=== PATIENT | female | born 1965 | race Caucasian/White ===

== ENCOUNTER 2016-12-02 06:51 | Day surgery (SDC) | payer MEDICAID ==
[~2016-12-02] VITALS: Ht 160 cm; Wt 67.6 kg
[2016-12-02] MEDS ORDERED: fentaNYL CITRATE/PF 100 MCG/2 ML AMP ONE ×2 (07:30)
[2016-12-02] MEDS ORDERED: MIDAZOLAM HCL 5 MG/5 ML VIAL ONE ×2 (07:31)
[2016-12-02] MEDS ORDERED: MEPERIDINE HCL/PF 100 MG/ML AMP ONE (07:50)
[2016-12-02] MEDS ORDERED: MEPERIDINE HCL/PF 100 MG/ML AMP IV ONE ×3 (08:26→08:45)
[2016-12-02] MEDS ORDERED: MIDAZOLAM HCL 5 MG/5 ML VIAL IVP ONE ×4 (08:28→08:34)
[2016-12-02 17:15] VITALS: BP_SYST 132
== END 2016-12-02 17:15 | disposition home or self-care (01) ==
LOC: SDS 06:51 → SMU 07:39 → SDS 17:15
PROVIDERS: ATTEND Internal Medicine Gastroenterology
DX: D50.9 Iron deficiency anemia, unspecified (principal); K57.30 Diverticulosis of large intestine without perforation or abscess without bleeding; K64.8 Other hemorrhoids; I10 Essential (primary) hypertension; E78.5 Hyperlipidemia, unspecified; Z98.890 Other specified postprocedural states; J45.909 Unspecified asthma, uncomplicated; Z87.891 Personal history of nicotine dependence; M19.90 Unspecified osteoarthritis, unspecified site; E11.9 Type 2 diabetes mellitus without complications; K21.9 Gastro-esophageal reflux disease without esophagitis
CPT/HCPCS: 45378; J2175; J2250; J3010

== ENCOUNTER 2018-02-08 14:49 | Emergency (ER) | payer MEDICAID ==
[~2018-02-08] VITALS: Ht 160 cm; Wt 70.3 kg
[2018-02-08 15:00] VITALS: BP_SYST 131
--- NOTE | 2018-02-08 15:09 | NUR ---
Placed in room 07 . Placed on hall monitor, blood pressure machine and pulse oximeter. To gown for exam. Side rails up. Report given to Garfield HERNANDEZ
--- NOTE | 2018-02-08 15:15 | NUR ---
Patient to ER via triage for evaluation of left foot pain and SOB, x 1 day. Patient is awake, alert and oriented in no acute distress, vital signs stable, respirations even and unlabored, skin warm and dry to touch. Patient able to ambulate to bed 7 with slow, steady gait. Awaiting evaluation by ER MD, will continue to observe and assess.
--- NOTE | 2018-02-08 15:45 | NUR ---
Patient to radiolgy via wheelchair in stable condition, awaiting results and dispo.
--- NOTE | 2018-02-08 16:15 | NUR ---
Patient returned from radiology in stable condition.
--- NOTE | 2018-02-08 16:30 | NUR ---
Lab at bedside to obtain specimens.
[2018-02-08 16:38] LABS: BASOPHILS # (AUTO) 0.1 K/uL (0.0-0.2); BASOPHILS % (AUTO) 0.7 % (0.0-2.0); EOSINOPHILS # (AUTO) 0.1 K/uL (0.0-0.4); EOSINOPHILS % (AUTO) 1.5 % (0.0-4.0); HEMATOCRIT 34.8 % (36-48); LYMPHOCYTES # (AUTO) 2.6 K/uL (1.0-5.5); LYMPHOCYTES % (AUTO) 31.7 % (20.5-51.5); MEAN CORPUSCULAR HEMOGLOBIN 26 pg (27-31); MEAN CORPUSCULAR HGB CONC 32 % (32-36); MEAN CORPUSCULAR VOLUME 82 fL (79.0-98.0); MONOCYTES # (AUTO) 0.7 K/uL (0.0-1.0); MONOCYTES % (AUTO) 8.6 % (1.7-9.3); NEUTROPHILS # (AUTO) 4.7 K/uL (1.8-7.7); NEUTROPHILS % (AUTO) 57.5 % (40.0-70.0); PLATELET COUNT (AUTO) 589 K/uL (130-430); RED BLOOD CELL COUNT(AUTO) 4.23 MIL/uL (4.2-6.2); WHITE BLOOD COUNT (AUTO) 8.2 K/uL (4.8-10.8)
[2018-02-08 16:56] LABS: C-REACTIVE PROTEIN QUANT 0.8 mg/dL (0-0.5); CALCIUM 9.2 mg/dL (8.4-11.0); CREATININE 0.84 mg/dL (0.55-1.30); POTASSIUM 3.9 mmol/L (3.5-5.1)
--- NOTE | 2018-02-08 17:30 | NUR ---
Patient resting quietly in no acute distress, awaiting lab results and dispo.
[2018-02-08 17:42] LABS: ERYTHROCYTE SEDIMENTATION RATE 20 MM/HR (0-20)
[2018-02-08 18:28] VITALS: BP_SYST 124
--- NOTE | 2018-02-08 18:30 | NUR ---
Patient given written and verbal discharge instructions and verbalizes understanding. ER MD discussed with patient the results and treatment provided. Patient in stable condition. ID arm band removed. IV catheter removed intact and dressing applied, no active bleeding. Rx of tramadol, keflex,Bactrim given. Patient educated on pain management and to follow up with PMD. Pain Scale 2/10 tolerable for patient . Opportunity for questions provided and answered. Medication side effect fact sheet provided.
== END 2018-02-08 18:28 | disposition home or self-care (01) ==
LOC: SED 14:49
DX: L03.116 Cellulitis of left lower limb (principal); E11.40 Type 2 diabetes mellitus with diabetic neuropathy, unspecified; I10 Essential (primary) hypertension; F17.200 Nicotine dependence, unspecified, uncomplicated
CPT/HCPCS: 36415; 71046-TC; 80048; 81025; 85025; 85651-TC; 86140; 93971; 99285

== ENCOUNTER 2018-07-03 21:02 | Inpatient (IN) | payer MEDICAID ==
[~2018-07-03] VITALS: Ht 160 cm; Wt 73.5 kg
[2018-07-03 21:06] VITALS: BP_SYST 133
[2018-07-04 01:46] LABS: MEAN CORPUSCULAR HEMOGLOBIN 16 pg (27-31); MEAN CORPUSCULAR HGB CONC 28 % (32-36); MEAN CORPUSCULAR VOLUME 58 fL (79.0-98.0); RED BLOOD CELL COUNT(AUTO) 3.45 MIL/uL (4.2-6.2); WHITE BLOOD COUNT (AUTO) 13.6 K/uL (4.8-10.8)
[2018-07-04 01:47] LABS: BASOPHILS # (AUTO) 0.1 K/uL (0.0-0.2); BASOPHILS % (AUTO) 0.8 % (0.0-2.0); EOSINOPHILS # (AUTO) 0.1 K/uL (0.0-0.4); LYMPHOCYTES # (AUTO) 3.3 K/uL (1.0-5.5); LYMPHOCYTES % (AUTO) 24.3 % (20.5-51.5); MONOCYTES % (AUTO) 7.7 % (1.7-9.3); NEUTROPHILS % (AUTO) 66.2 % (40.0-70.0); PLATELET COUNT (AUTO) 576 K/uL (130-430); RED CELL DISTRIBUTION WIDTH 19.4 % (9.0-15.0)
[2018-07-04 01:48] LABS: POTASSIUM 3.7 mmol/L (3.5-5.1)
[2018-07-04 01:49] LABS: HEMOGLOBIN 5.7 g/dL (12.0-16.0)
[2018-07-04 02:12] LABS: INR 6.3 (0.8-1.2); PROTHROMBIN TIME 59.3 SECS (9.5-12.5)
[2018-07-04] MEDS ORDERED: MIRT30TA7 PO (04:10)
[2018-07-04] MEDS ORDERED: GABA-531 PO (04:10)
[2018-07-04] MEDS ORDERED: CYCL-10 PO (04:10)
[2018-07-04] MEDS ORDERED: PRO40 PO (04:10)
[2018-07-04] MEDS ORDERED: IMI50 PO (04:10)
[2018-07-04] MEDS ORDERED: HYDR-4274 PO (04:10)
[2018-07-04] MEDS ORDERED: LISI-209 PO (04:10)
[2018-07-04] MEDS ORDERED: DOCU-144 PO (04:10)
[2018-07-04] MEDS ORDERED: MECL12.584 PO (04:10)
[2018-07-04] MEDS ORDERED: LOSA25TA3 PO (04:10)
[2018-07-04] MEDS ORDERED: ALBMDI INH (04:10)
[2018-07-04] MEDS ORDERED: LIP40 PO (04:10)
[2018-07-04] MEDS ORDERED: ONDA4TAB5 PO (04:10)
[2018-07-04] MEDS ORDERED: ESCI20TA PO (04:10)
[2018-07-04 04:40] VITALS: BP_SYST 130
[2018-07-04] MEDS: HYDROcodone/ACETAMIN 10-325 MG TAB PO PRN ×3 (06:23→19:34)
[2018-07-04 08:00] VITALS: BP_SYST 112
[2018-07-04] MEDS ORDERED: MAGNESIUM SULFATE 50 ML IV PRN (10:30)
[2018-07-04] MEDS ORDERED: DOCUSATE SODIUM 100 MG CAPSULE PO PRN (10:30)
[2018-07-04] MEDS ORDERED: MUPIROCIN 2% TOPICAL OINTMENT 22 GM NS PRN (10:30)
[2018-07-04] MEDS ORDERED: LORazepam 2 MG/ML VIAL IVP PRN (10:30)
[2018-07-04] MEDS ORDERED: ZOLPIDEM TARTRATE 5 MG TABLET PO PRN (10:30)
[2018-07-04] MEDS ORDERED: MORPHINE 4 MG/ML INJ. SYRINGE IVP PRN ×2 (10:30)
[2018-07-04] MEDS ORDERED: ONDANSETRON HCL 4 MG/2 ML VIAL IVP PRN (10:30)
[2018-07-04] MEDS ORDERED: IPRATROPIUM/ALBUTEROL SULFATE 3 ML AMPUL.NEB (DUONEB) INH PRN (10:30)
[2018-07-04] MEDS ORDERED: ACETAMINOPHEN 325 MG TABLET PO PRN (10:30)
[2018-07-04 11:11] LABS: CALCIUM 9.3 mg/dL (8.4-11.0); CREATININE 0.91 mg/dL (0.55-1.30); POTASSIUM 3.8 mmol/L (3.5-5.1)
[2018-07-04 11:23] LABS: TOTAL IRON BIND. CAPACITY 404 ug/dL (250-450)
[2018-07-04 11:28] LABS: PROTHROMBIN TIME 71.9 SECS (9.5-12.5)
[2018-07-04 11:29] LABS: INR 7.7 (0.8-1.2)
[2018-07-04 11:53] LABS: RED BLOOD CELL COUNT(AUTO) 3.62 MIL/uL (4.2-6.2); WHITE BLOOD COUNT (AUTO) 10.3 K/uL (4.8-10.8)
[2018-07-04 11:54] LABS: BASOPHILS # (AUTO) 0.1 K/uL (0.0-0.2); EOSINOPHILS # (AUTO) 0.3 K/uL (0.0-0.4); EOSINOPHILS % (AUTO) 2.9 % (0.0-4.0); LYMPHOCYTES # (AUTO) 2.5 K/uL (1.0-5.5); LYMPHOCYTES % (AUTO) 24.2 % (20.5-51.5); MEAN CORPUSCULAR HEMOGLOBIN 19 pg (27-31); MEAN CORPUSCULAR HGB CONC 31 % (32-36); MEAN CORPUSCULAR VOLUME 62 fL (79.0-98.0); MONOCYTES # (AUTO) 1.1 K/uL (0.0-1.0); MONOCYTES % (AUTO) 10.3 % (1.7-9.3); NEUTROPHILS # (AUTO) 6.4 K/uL (1.8-7.7); NEUTROPHILS % (AUTO) 61.6 % (40.0-70.0); PLATELET COUNT (AUTO) 514 K/uL (130-430)
[2018-07-04 11:57] LABS: HEMATOCRIT 22.5 % (36-48)
[2018-07-04 12:41] VITALS: BP_SYST 98
[2018-07-04] MEDS ORDERED: PHYTONADIONE 5 MG TABLET PO ONE (12:45)
[2018-07-04] MEDS ORDERED: PHYTONADIONE 10 MG/ML AMP PO ONE (13:45)
[2018-07-04 13:50] LABS: RED CELL DISTRIBUTION WIDTH 25.6 % (9.0-15.0)
[2018-07-04] MEDS: GABAPENTIN 300 MG CAPSULE PO SCH ×2 (15:20→20:19)
[2018-07-04 16:36] VITALS: BP_SYST 92
[2018-07-04 17:51] LABS: BILIRUBIN,URINE NEGATIVE (NEGATIVE); BLOOD, URINE NEGATIVE (NEGATIVE); CLARITY/URINE CLEAR (CLEAR); COLOR,URINE YELLOW (YELLOW); GLUCOSE,URINE NEGATIVE (NEGATIVE); KETONES,URINE NEGATIVE (NEGATIVE); LEUKOCYTE ESTERASE ,URINE NEGATIVE (NEGATIVE); NITRITE, URINE NEGATIVE (NEGATIVE); PH,URINE 5.5 (5.0-8.0); PROTEIN URINE NEGATIVE (NEGATIVE); UROBILINOGEN,URINE 0.2 (0.2-1.0)
[2018-07-04 18:05] LABS: BENZODIAZEPINE, URINE NEGATIVE (NEG <=150); CANNABINOID, URINE NEGATIVE (NEG <=50); COCAINE, URINE NEGATIVE (NEG <=150); METHAMPHETAMINES SCREEN,URINE NEGATIVE (NEG <=500); OPIATE, URINE POSITIVE (NEG <=100); PHENCYCLIDINE SCREEN,URINE NEGATIVE (NEG <=25); URINE AMPHETAMINE NEGATIVE (NEG <=500); URINE METHADONE NEGATIVE (NEG <=200); URINE OXYCODONE SCREEN NEGATIVE (NEG <=100); URINE PROPOXYPHENE SCREEN NEGATIVE (NEG <=300)
[2018-07-04 18:06] LABS: UR TRICYCLIC ANTIDEPRESSANTS POSITIVE (NEG <=300)
[2018-07-04 18:07] LABS: BARBITURATE, URINE NEGATIVE (NEG <=200)
[2018-07-04 20:00] VITALS: BP_SYST 122
[2018-07-04] MEDS: FERROUS SULFATE 325 MG TABLET.DR PO SCH (20:19)
[2018-07-04] MEDS: DOCUSATE SODIUM 100 MG CAPSULE PO SCH (20:19)
[2018-07-04] MEDS: MIRTAZAPINE 15 MG TABLET PO SCH (20:19)
[2018-07-04] MEDS: CYCLOBENZAPRINE HCL 10 MG TABLET (FLEXERIL) PO SCH (20:19)
[2018-07-05] VITALS: BP_SYST 126
[2018-07-05 00:41] VITALS: BP_SYST 135
[2018-07-05] MEDS: HYDROcodone/ACETAMIN 10-325 MG TAB PO PRN ×4 (06:23→20:47)
[2018-07-05 07:57] VITALS: BP_SYST 123
[2018-07-05 08:00] LABS: INR 1.2 (0.8-1.2)
[2018-07-05 08:07] LABS: CALCIUM 8.9 mg/dL (8.4-11.0); CREATININE 0.84 mg/dL (0.55-1.30); POTASSIUM 3.9 mmol/L (3.5-5.1)
[2018-07-05 08:12] LABS: PROTHROMBIN TIME 12.7 SECS (9.5-12.5)
[2018-07-05] MEDS: GABAPENTIN 300 MG CAPSULE PO SCH ×3 (08:29→20:45)
[2018-07-05] MEDS: CYCLOBENZAPRINE HCL 10 MG TABLET (FLEXERIL) PO SCH ×2 (08:29→20:45)
[2018-07-05] MEDS: DOCUSATE SODIUM 100 MG CAPSULE PO SCH ×2 (08:30→20:46)
[2018-07-05] MEDS: CITALOPRAM HYDROBROMIDE 20 MG TABLET PO SCH (08:30)
[2018-07-05] MEDS: LOSARTAN POTASSIUM 25 MG TABLET PO SCH (08:30)
[2018-07-05] MEDS: FERROUS SULFATE 325 MG TABLET.DR PO SCH ×2 (08:31→20:45)
[2018-07-05] MEDS: ATORVASTATIN 20 MG TABLET PO SCH (08:31)
[2018-07-05] MEDS: PANTOPRAZOLE SODIUM 40 MG TAB PO SCH (08:31)
[2018-07-05 08:49] LABS: RED BLOOD CELL COUNT(AUTO) 3.91 MIL/uL (4.2-6.2); WHITE BLOOD COUNT (AUTO) 9.5 K/uL (4.8-10.8)
[2018-07-05 08:50] LABS: BASOPHILS # (AUTO) 0.1 K/uL (0.0-0.2); BASOPHILS % (AUTO) 0.9 % (0.0-2.0); EOSINOPHILS # (AUTO) 0.3 K/uL (0.0-0.4); EOSINOPHILS % (AUTO) 3.2 % (0.0-4.0); HEMATOCRIT 24.8 % (36-48); HEMOGLOBIN 7.3 g/dL (12.0-16.0); LYMPHOCYTES # (AUTO) 2.7 K/uL (1.0-5.5); LYMPHOCYTES % (AUTO) 28.1 % (20.5-51.5); MEAN CORPUSCULAR HEMOGLOBIN 19 pg (27-31); MEAN CORPUSCULAR HGB CONC 30 % (32-36); MEAN CORPUSCULAR VOLUME 64 fL (79.0-98.0); MONOCYTES # (AUTO) 1.1 K/uL (0.0-1.0); MONOCYTES % (AUTO) 11.8 % (1.7-9.3); NEUTROPHILS # (AUTO) 5.3 K/uL (1.8-7.7); PLATELET COUNT (AUTO) 542 K/uL (130-430); RED CELL DISTRIBUTION WIDTH 25.2 % (9.0-15.0)
[2018-07-05] MEDS ORDERED: GOLYTELY / COLYTE SOLUTION 4 LITERS PO ONE (09:30)
[2018-07-05 12:00] VITALS: BP_SYST 133
[2018-07-05 12:09] LABS: FOLATE (FOLIC ACID) 7.7 ng/mL (>3.0)
[2018-07-05 16:00] VITALS: BP_SYST 130
[2018-07-05] MEDS ORDERED: BISACODYL 5 MG TABLET.DR (DULCOLAX) PO ONE (18:30)
[2018-07-05 20:00] VITALS: BP_SYST 147
[2018-07-05] MEDS: MIRTAZAPINE 15 MG TABLET PO SCH (20:45)
[2018-07-06 00:15] VITALS: BP_SYST 136
[2018-07-06] MEDS ORDERED: fentaNYL CITRATE/PF 100 MCG/2 ML AMP ONE (07:29)
[2018-07-06] MEDS ORDERED: SIMETHICONE 40 MG/0.6 ML ML ONE (07:29)
[2018-07-06] MEDS ORDERED: MIDAZOLAM HCL 5 MG/5 ML VIAL ONE (07:30)
[2018-07-06 07:34] LABS: CALCIUM 8.3 mg/dL (8.4-11.0); CREATININE 0.68 mg/dL (0.55-1.30)
[2018-07-06 08:02] LABS: RED BLOOD CELL COUNT(AUTO) 3.59 MIL/uL (4.2-6.2); WHITE BLOOD COUNT (AUTO) 9.9 K/uL (4.8-10.8)
[2018-07-06 08:04] LABS: BASOPHILS # (AUTO) 0.1 K/uL (0.0-0.2); BASOPHILS % (AUTO) 1.2 % (0.0-2.0); EOSINOPHILS # (AUTO) 0.2 K/uL (0.0-0.4); EOSINOPHILS % (AUTO) 1.8 % (0.0-4.0); LYMPHOCYTES # (AUTO) 2.5 K/uL (1.0-5.5); LYMPHOCYTES % (AUTO) 25.1 % (20.5-51.5); MEAN CORPUSCULAR HEMOGLOBIN 19 pg (27-31); MEAN CORPUSCULAR HGB CONC 29 % (32-36); MEAN CORPUSCULAR VOLUME 64 fL (79.0-98.0); MONOCYTES # (AUTO) 0.9 K/uL (0.0-1.0); MONOCYTES % (AUTO) 8.9 % (1.7-9.3); NEUTROPHILS # (AUTO) 6.2 K/uL (1.8-7.7); PLATELET COUNT (AUTO) 532 K/uL (130-430); RED CELL DISTRIBUTION WIDTH 26.4 % (9.0-15.0)
[2018-07-06 08:05] LABS: HEMATOCRIT 22.8 % (36-48)
[2018-07-06 08:11] LABS: HEMOGLOBIN 6.6 g/dL (12.0-16.0)
[2018-07-06] MEDS ORDERED: BENZOCAINE 20% 0.5mL UD SPRAY MM ONE ×2 (08:25→10:45)
[2018-07-06] MEDS ORDERED: COMMUNICATION ORDER XX ONE (09:00)
[2018-07-06] MEDS ORDERED: LORATADINE 10 MG TABLET PO ONE (10:15)
[2018-07-06] MEDS ORDERED: ACETAMINOPHEN 325 MG TABLET PO ONE (10:15)
[2018-07-06] MEDS ORDERED: SOD FERRIC GLUC COMPLEX/SUC 125 MG in NS 100 ML IV ONE (10:45)
[2018-07-06] MEDS: CITALOPRAM HYDROBROMIDE 20 MG TABLET PO SCH (11:18)
[2018-07-06] MEDS: HYDROcodone/ACETAMIN 10-325 MG TAB PO PRN ×3 (11:18→21:22)
[2018-07-06] MEDS: ATORVASTATIN 20 MG TABLET PO SCH (11:19)
[2018-07-06] MEDS: GABAPENTIN 300 MG CAPSULE PO SCH ×3 (11:19→21:19)
[2018-07-06] MEDS: PANTOPRAZOLE SODIUM 40 MG TAB PO SCH (11:20)
[2018-07-06] MEDS: DOCUSATE SODIUM 100 MG CAPSULE PO SCH ×2 (11:20→21:18)
[2018-07-06] MEDS: POTASSIUM CHLORIDE 20 MEQ TAB.PRT.SR PO PRN (11:20)
[2018-07-06] MEDS: FERROUS SULFATE 325 MG TABLET.DR PO SCH ×2 (11:21→21:19)
[2018-07-06] MEDS: CYCLOBENZAPRINE HCL 10 MG TABLET (FLEXERIL) PO SCH ×2 (11:21→21:18)
[2018-07-06] MEDS: LOSARTAN POTASSIUM 25 MG TABLET PO SCH (11:21)
[2018-07-06 12:12] VITALS: BP_SYST 100
[2018-07-06 16:02] VITALS: BP_SYST 123
[2018-07-06] MEDS ORDERED: BISACODYL 5 MG TABLET.DR (DULCOLAX) PO ONE (17:00)
[2018-07-06] MEDS ORDERED: GOLYTELY / COLYTE SOLUTION 4 LITERS PO ONE (18:00)
[2018-07-06 20:30] VITALS: BP_SYST 140
[2018-07-06] MEDS: MIRTAZAPINE 15 MG TABLET PO SCH (21:18)
[2018-07-07 00:12] VITALS: BP_SYST 142
[2018-07-07] MEDS: HYDROcodone/ACETAMIN 10-325 MG TAB PO PRN ×3 (05:45→14:22)
[2018-07-07 06:25] LABS: CALCIUM 8.4 mg/dL (8.4-11.0); CREATININE 0.75 mg/dL (0.55-1.30)
[2018-07-07 06:29] LABS: POTASSIUM 2.9 mmol/L (3.5-5.1)
[2018-07-07] MEDS ORDERED: MIDAZOLAM HCL 5 MG/5 ML VIAL ONE (06:33)
[2018-07-07] MEDS ORDERED: SIMETHICONE 40 MG/0.6 ML ML ONE (06:34)
[2018-07-07] MEDS: POTASSIUM CHLORIDE 20 MEQ TAB.PRT.SR PO PRN (06:53)
[2018-07-07 07:36] LABS: BASOPHILS % (AUTO) 1.2 % (0.0-2.0); EOSINOPHILS % (AUTO) 4.5 % (0.0-4.0); HEMATOCRIT 25.3 % (36-48); HEMOGLOBIN 7.7 g/dL (12.0-16.0); LYMPHOCYTES # (AUTO) 2.9 K/uL (1.0-5.5); LYMPHOCYTES % (AUTO) 30.8 % (20.5-51.5); MEAN CORPUSCULAR HEMOGLOBIN 21 pg (27-31); MEAN CORPUSCULAR HGB CONC 30 % (32-36); MEAN CORPUSCULAR VOLUME 69 fL (79.0-98.0); MONOCYTES % (AUTO) 10.2 % (1.7-9.3); NEUTROPHILS % (AUTO) 53.3 % (40.0-70.0); PLATELET COUNT (AUTO) 509 K/uL (130-430); RED BLOOD CELL COUNT(AUTO) 3.69 MIL/uL (4.2-6.2); RED CELL DISTRIBUTION WIDTH 29.6 % (9.0-15.0); WHITE BLOOD COUNT (AUTO) 9.4 K/uL (4.8-10.8)
[2018-07-07 07:37] LABS: BASOPHILS # (AUTO) 0.1 K/uL (0.0-0.2); EOSINOPHILS # (AUTO) 0.4 K/uL (0.0-0.4)
[2018-07-07] MEDS: MIDAZOLAM HCL 5 MG/5 ML VIAL ONE ×3 (08:01→08:08)
[2018-07-07] MEDS: fentaNYL CITRATE/PF 100 MCG/2 ML AMP ONE ×2 (08:01→08:04)
[2018-07-07 08:50] VITALS: BP_SYST 117
[2018-07-07] MEDS: DOCUSATE SODIUM 100 MG CAPSULE PO SCH (09:00)
[2018-07-07] MEDS ORDERED: SOD FERRIC GLUC COMPLEX/SUC 125 MG in NS 100 ML IV SCH (09:00)
[2018-07-07] MEDS: ATORVASTATIN 20 MG TABLET PO SCH (09:30)
[2018-07-07] MEDS: GABAPENTIN 300 MG CAPSULE PO SCH ×2 (09:30→14:24)
[2018-07-07] MEDS: CITALOPRAM HYDROBROMIDE 20 MG TABLET PO SCH (09:30)
[2018-07-07] MEDS: FERROUS SULFATE 325 MG TABLET.DR PO SCH (09:31)
[2018-07-07] MEDS: CYCLOBENZAPRINE HCL 10 MG TABLET (FLEXERIL) PO SCH (09:31)
[2018-07-07] MEDS: PANTOPRAZOLE SODIUM 40 MG TAB PO SCH (09:31)
[2018-07-07] MEDS: LOSARTAN POTASSIUM 25 MG TABLET PO SCH (09:34)
[2018-07-07] MEDS ORDERED: POTASSIUM CHLORIDE 20 MEQ TAB.PRT.SR PO ONE ×2 (10:15→14:00)
[2018-07-07 12:02] VITALS: BP_SYST 115
[2018-07-07 13:17] LABS: CALCIUM 8.3 mg/dL (8.4-11.0); CREATININE 0.78 mg/dL (0.55-1.30); POTASSIUM 3.1 mmol/L (3.5-5.1)
[2018-07-07] MEDS ORDERED: MAGNESIUM OXIDE 400 MG TABLET PO ONE (14:00)
[2018-07-07 16:02] VITALS: BP_SYST 108
[2018-07-07 17:22] LABS: CALCIUM 8.2 mg/dL (8.4-11.0); CREATININE 0.84 mg/dL (0.55-1.30); POTASSIUM 3.6 mmol/L (3.5-5.1)
[2018-07-07 17:46] VITALS: BP_SYST 108
[2018-07-07] MEDS ORDERED: PRO40 PO (17:51)
[2018-07-07] MEDS ORDERED: FERR140T2 PO (17:51)
== END 2018-07-07 18:38 | disposition home or self-care (01) | DRG 861 ==
LOC: SED 21:02 → STU 07-04 04:00
PROVIDERS: ADMIT General Practice; ATTEND General Practice
PROC: 30233N1 Transfusion of Nonautologous Red Blood Cells into Peripheral Vein, Percutaneous Approach (ICD-10-PCS; principal; 2018-07-04)
PROC: 0DB68ZX Excision of Stomach, Via Natural or Artificial Opening Endoscopic, Diagnostic (ICD-10-PCS; 2018-07-06)
PROC: 0DJD8ZZ Inspection of Lower Intestinal Tract, Via Natural or Artificial Opening Endoscopic (ICD-10-PCS; 2018-07-06)
PROC: 0DB98ZX Excision of Duodenum, Via Natural or Artificial Opening Endoscopic, Diagnostic (ICD-10-PCS; 2018-07-06 08:00)
PROC: 0DJD8ZZ Inspection of Lower Intestinal Tract, Via Natural or Artificial Opening Endoscopic (ICD-10-PCS; 2018-07-07)
DX: R79.1 Abnormal coagulation profile (principal); E11.40 Type 2 diabetes mellitus with diabetic neuropathy, unspecified; R65.10 Systemic inflammatory response syndrome (SIRS) of non-infectious origin without acute organ dysfunction; K22.10 Ulcer of esophagus without bleeding; E87.1 Hypo-osmolality and hyponatremia; D50.9 Iron deficiency anemia, unspecified; F17.210 Nicotine dependence, cigarettes, uncomplicated; F32.9 Major depressive disorder, single episode, unspecified; T45.515A Adverse effect of anticoagulants, initial encounter; G89.29 Other chronic pain; I10 Essential (primary) hypertension; J45.909 Unspecified asthma, uncomplicated; K29.60 Other gastritis without bleeding; K44.9 Diaphragmatic hernia without obstruction or gangrene; K57.30 Diverticulosis of large intestine without perforation or abscess without bleeding; K64.8 Other hemorrhoids; Z79.01 Long term (current) use of anticoagulants; Z95.2 Presence of prosthetic heart valve; Y92.89 Other specified places as the place of occurrence of the external cause
CPT/HCPCS: 36415; 43239; 45378; 80048; 80307; 81003; 82607; 82728; 82746; 83036; 83540-TC; 83550-TC; 83735-TC; 85025; 85610-TC; 85730-TC; 86886; 86900; 86901; 86920; 87081; 88305; 88312; 88313; 93005; 99285; G0378; J2250; J2916; J3010; J3430; J7030; J7050; P9021

== ENCOUNTER 2018-10-06 14:55 | Emergency (ER) | payer MEDICAID ==
[~2018-10-06] VITALS: Ht 160 cm; Wt 72.6 kg
[2018-10-06 14:55] VITALS: BP_SYST 160
[~2018-10-06 14:55] MED LIST: ALBMDI INH; CYCL-10 PO; DOCU-144 PO; ESCI20TA PO; FERR140T2 PO; GABA-531 PO; HYDR-4274 PO; IMI50 PO; LIP40 PO; LISI-209 PO; LOSA25TA3 PO; MECL12.584 PO; MIRT30TA7 PO; ONDA4TAB5 PO; PRO40 PO
--- NOTE | 2018-10-06 14:55 | NUR ---
Patient triaged and placed in waiting room. VSS and patient appears in no acute distress at this time. Accompanied by SPOUSE, awaiting available bed, and MD notified of need for MSE.
[2018-10-06 15:46] LABS: BASOPHILS # (AUTO) 0.1 K/uL (0.0-0.2); BASOPHILS % (AUTO) 0.7 % (0.0-2.0); EOSINOPHILS # (AUTO) 0.2 K/uL (0.0-0.4); EOSINOPHILS % (AUTO) 2.6 % (0.0-4.0); HEMATOCRIT 42.3 % (36-48); HEMOGLOBIN 13.7 g/dL (12.0-16.0); LYMPHOCYTES # (AUTO) 1.7 K/uL (1.0-5.5); LYMPHOCYTES % (AUTO) 21.7 % (20.5-51.5); MEAN CORPUSCULAR HEMOGLOBIN 30 pg (27-31); MEAN CORPUSCULAR HGB CONC 32 % (32-36); MEAN CORPUSCULAR VOLUME 93 fL (79.0-98.0); MONOCYTES # (AUTO) 0.7 K/uL (0.0-1.0); MONOCYTES % (AUTO) 9.7 % (1.7-9.3); NEUTROPHILS % (AUTO) 65.3 % (40.0-70.0); PLATELET COUNT (AUTO) 334 K/uL (130-430); RED BLOOD CELL COUNT(AUTO) 4.55 MIL/uL (4.2-6.2); RED CELL DISTRIBUTION WIDTH 13.7 % (9.0-15.0); WHITE BLOOD COUNT (AUTO) 7.7 K/uL (4.8-10.8)
[2018-10-06 16:01] LABS: CALCIUM 9.8 mg/dL (8.4-11.0); CREATININE 0.86 mg/dL (0.55-1.30); POTASSIUM 4.1 mmol/L (3.5-5.1)
[2018-10-06 16:05] LABS: ALBUMIN 3.6 g/dL (3.4-4.8); TOTAL BILIRUBIN 0.2 mg/dL (0.0-1.0)
[2018-10-06 16:24] LABS: INR 4.5 (0.8-1.2); PROTHROMBIN TIME 43.2 SECS (9.5-12.5)
--- NOTE | 2018-10-06 20:00 | NUR ---
Patient to ER bed 08 to gown for evaluation. Side rails up. Report given to Main HERNANDEZ.
--- NOTE | 2018-10-06 20:10 | NUR ---
Pt came is a 53 y/o female who came into the ER today for abnormal labs. Pt states that her high school chemistry teacher Dr. Middleton told her that her INR value was 7.0 and that they reccomend the pt go to the ER. Pt states shselvis takes coumadin. Pt also states that she has been having worsening lower back pain and has been taking norco and using a a massager for some releif. Pt states she has hx of spinal stenosis. No complaints of fever, chills, chest pain, sob, headache, dizziness, numbness, or tingling. Will continue to monitor pt.
--- NOTE | 2018-10-06 20:20 | NUR ---
JOHN Burris at bedside examining patient.
[2018-10-06] MEDS ORDERED: HYDROcodone/ACETAMIN 10-325 MG TAB PO ONE (20:45)
--- NOTE | 2018-10-06 21:37 | NUR ---
ER Dr. Burris at bedside speaking w/ patient.
[2018-10-06 21:52] VITALS: BP_SYST 160
--- NOTE | 2018-10-06 21:52 | NUR ---
Patient given written and verbal discharge instructions and verbalizes understanding. ER MD. Dr. Burris discussed with patient the results and treatment provided. Patient in stable condition. ID arm band removed. Patient educated on pain management and to follow up with pt's [employer] Worker on Tuesday. Pain Scale 0/10. Opportunity for questions provided and answered. Medication side effect fact sheet provided.
== END 2018-10-06 21:52 | disposition home or self-care (01) ==
LOC: SED 14:55
DX: R79.1 Abnormal coagulation profile (principal); E11.9 Type 2 diabetes mellitus without complications; I10 Essential (primary) hypertension; K21.9 Gastro-esophageal reflux disease without esophagitis; Z86.79 Personal history of other diseases of the circulatory system; Z79.899 Other long term (current) drug therapy
CPT/HCPCS: 36415; 80053; 85025; 85610-TC; 85730-TC; 99283

== ENCOUNTER 2024-02-01 01:01 | Inpatient (IN) | payer BC, MEDICAID ==
[2024-02-01] VITALS (7 sets, daily range): BP systolic 102–135; PULSE 96–118; RESP 16–20; TEMP 97.6–98.6; O2SAT 97–100
[~2024-02-01] VITALS: Ht 160 cm; Wt 59.4 kg
[~2024-02-01 01:01] MED LIST changes: -CYCL-10 PO; +CYCL10TA24 PO; +LOSA-412 PO; -LOSA25TA3 PO; +MECL-225 PO; -MECL12.584 PO; +MIRT-92 PO; -MIRT30TA7 PO
[2024-02-01 02:33] LABS: BASOPHILS # (AUTO) 0.1 K/uL (0.0-0.2); BASOPHILS % (AUTO) 0.6 % (0.0-2.0); EOSINOPHILS % (AUTO) 0.4 % (0.0-4.0); LYMPHOCYTES # (AUTO) 3.4 K/uL (1.0-5.5); LYMPHOCYTES % (AUTO) 29.4 % (20.5-51.5); MEAN CORPUSCULAR HEMOGLOBIN 29 pg (27-31); MEAN CORPUSCULAR HGB CONC 33 % (32-36); MEAN CORPUSCULAR VOLUME 89 fL (79.0-98.0); MONOCYTES # (AUTO) 0.9 K/uL (0.0-1.0); NEUTROPHILS % (AUTO) 61.6 % (40.0-70.0); PLATELET COUNT (AUTO) 322 K/uL (130-430); RED BLOOD CELL COUNT(AUTO) 2.33 MIL/uL (4.2-6.2); RED CELL DISTRIBUTION WIDTH 15.2 % (9.0-15.0); WHITE BLOOD COUNT (AUTO) 11.4 K/uL (4.8-10.8)
[2024-02-01] MEDS: ALBUTEROL SULFATE 0.083% 2.5 MG/3 ML VIAL.NEB INH ONE (02:55)
[2024-02-01] MEDS: IPRATROPIUM BROM 0.5 MG/2.5 ML VIAL.NEB (ATROVENT) INH ONE (02:56)
[2024-02-01] MEDS: MORPHINE 4 MG INJ. 4 MG/ML VIAL IVP ONE ×2 (02:57→05:22)
[2024-02-01 03:04] LABS: ALANINE AMINOTRANSFERASE 34 U/L (12-78); ALBUMIN 3.2 g/dL (3.4-4.8); ANION GAP 10 (5-15); ASPARTATE AMINOTRANSFERASE 39 U/L (10-37); BILIRUBIN,DIRECT 0.1 mg/dL (0.0-0.3); CALCIUM 8.6 mg/dL (8.4-11.0); CARBON DIOXIDE 26 mmol/L (23-29); CHLORIDE 103 mmol/L (98-107); GFR AFRICAN AMERICAN 94 mL/min (>90); GLUCOSE 138 mg/dL (74-106); LIPASE 35 U/L (16-77); POTASSIUM 4.6 mmol/L (3.5-5.1); SODIUM SERUM 139 mmol/L (136-145); TOTAL BILIRUBIN 0.1 mg/dL (0.0-1.0); TOTAL PROTEIN, SERUM 5.9 g/dL (6.4-8.3); UREA NITROGEN, BLOOD 41 mg/dL (8-21)
[2024-02-01 03:07] LABS: HEMATOCRIT 20.7 % (36-48); HEMOGLOBIN 6.7 g/dL (12.0-16.0)
[2024-02-01 03:14] LABS: GFR NON AFRICAN-AMERICAN 78 mL/min (>90)
[2024-02-01 03:19] LABS: PROTHROMBIN TIME 56.9 SECS (9.5-12.5)
[2024-02-01] MEDS: ONDANSETRON HCL 4 MG/2 ML VIAL IVP ONE (05:22)
[2024-02-01] MEDS: NACL 0.9% 1,000 ML IV ONE (06:55)
[2024-02-01] MEDS ORDERED: ZOLPIDEM TARTRATE 5 MG TABLET PO PRN (08:00)
[2024-02-01] MEDS ORDERED: MAGNESIUM SULFATE 50 ML IV PRN (08:00)
[2024-02-01] MEDS ORDERED: POTASSIUM CHLORIDE 20 MEQ TABLET.ER PO PRN (08:00)
[2024-02-01] MEDS ORDERED: ONDANSETRON HCL 4 MG/2 ML VIAL IVP PRN (08:00)
[2024-02-01] MEDS ORDERED: DOCUSATE SODIUM 100 MG CAPSULE PO PRN (08:00)
[2024-02-01] MEDS ORDERED: NALOXONE HCL 0.4 MG/ML AMP (NARCAN) IVP PRN ×2 (08:00)
[2024-02-01] MEDS ORDERED: MUPIROCIN 2% TOPICAL OINTMENT 22 GM NS PRN (08:00)
[2024-02-01] MEDS ORDERED: LORazepam 2 MG/ML VIAL IVP PRN (08:00)
[2024-02-01] MEDS ORDERED: MORPHINE 2 MG/ML INJ. SYRINGE ONE (08:09)
[2024-02-01] MEDS: PANTOPRAZOLE SODIUM 40 MG/VIAL (PROTONIX) IVP SCH (08:14)
[2024-02-01] MEDS: MORPHINE 2 MG/ML INJ. SYRINGE IVP PRN (08:14)
[2024-02-01] MEDS: D5NS 1,000 ML IV SCH (09:25)
[2024-02-01] MEDS ORDERED: ACETAMINOPHEN 500 MG TABLET PO PRN ×3 (11:30→11:45)
[2024-02-01] MEDS ORDERED: ACETAMINOPHEN 325 MG TABLET PO PRN ×2 (11:30)
[2024-02-01 11:37] LABS: BASOPHILS # (AUTO) 0.1 K/uL (0.0-0.2); HEMOGLOBIN 7.1 g/dL (12.0-16.0); LYMPHOCYTES # (AUTO) 3.1 K/uL (1.0-5.5); MEAN CORPUSCULAR HGB CONC 33 % (32-36); RED BLOOD CELL COUNT(AUTO) 2.38 MIL/uL (4.2-6.2)
[2024-02-01 11:40] LABS: BASOPHILS % (AUTO) 0.6 % (0.0-2.0); EOSINOPHILS % (AUTO) 0.3 % (0.0-4.0); LYMPHOCYTES % (AUTO) 25.6 % (20.5-51.5); MEAN CORPUSCULAR HEMOGLOBIN 30 pg (27-31); MEAN CORPUSCULAR VOLUME 90 fL (79.0-98.0); MONOCYTES # (AUTO) 1.3 K/uL (0.0-1.0); MONOCYTES % (AUTO) 10.5 % (1.7-9.3); NEUTROPHILS # (AUTO) 7.5 K/uL (1.8-7.7); PLATELET COUNT (AUTO) 241 K/uL (130-430); RED CELL DISTRIBUTION WIDTH 14.6 % (9.0-15.0)
[2024-02-01 12:06] LABS: HEMATOCRIT 21.4 % (36-48)
[2024-02-01] MEDS ORDERED: lisinopriL 5 MG TABLET PO SCH (13:15)
[2024-02-01] MEDS ORDERED: ESCITALOPRAM OXALATE 10 MG TABLET PO SCH (13:15)
[2024-02-01] MEDS ORDERED: ONDANSETRON 4 MG ODT TAB PO PRN (13:45)
[2024-02-01 13:58] LABS: BILIRUBIN,URINE NEGATIVE (NEGATIVE); BLOOD, URINE NEGATIVE (NEGATIVE); CLARITY/URINE CLEAR (CLEAR); COLOR,URINE YELLOW (YELLOW); GLUCOSE,URINE NEGATIVE (NEGATIVE); KETONES,URINE NEGATIVE (NEGATIVE); LEUKOCYTE ESTERASE ,URINE NEGATIVE (NEGATIVE); NITRITE, URINE NEGATIVE (NEGATIVE); PROTEIN URINE NEGATIVE (NEGATIVE); UROBILINOGEN,URINE 0.2 (0.2-1.0)
[2024-02-01] MEDS: ATORVASTATIN 20 MG TABLET PO ONE (14:08)
[2024-02-01] MEDS: CYCLOBENZAPRINE HCL 10 MG TABLET (FLEXERIL) PO ONE (14:08)
[2024-02-01] MEDS: FERROUS SULFATE 325 MG TABLET.DR PO ONE (14:09)
[2024-02-01 14:11] LABS: BARBITURATE, URINE NEGATIVE (NEG <=200); BENZODIAZEPINE, URINE NEGATIVE (NEG <=150); CANNABINOID, URINE NEGATIVE (NEG <=50); COCAINE, URINE NEGATIVE (NEG <=150); METHAMPHETAMINES SCREEN,URINE NEGATIVE (NEG <=500); OPIATE, URINE POSITIVE (NEG <=100); PHENCYCLIDINE SCREEN,URINE NEGATIVE (NEG <=25); UR TRICYCLIC ANTIDEPRESSANTS NEGATIVE (NEG <=300); URINE AMPHETAMINE NEGATIVE (NEG <=500); URINE METHADONE NEGATIVE (NEG <=200); URINE OXYCODONE SCREEN NEGATIVE (NEG <=100)
[2024-02-01] MEDS: PREGABALIN 25 MG CAPSULE (LYRICA) PO ONE (16:33)
[2024-02-01] MEDS ORDERED: ONDANSETRON 4 MG ODT TAB PO SCH (18:00)
[2024-02-01] MEDS: FERROUS SULFATE 325 MG TABLET.DR PO SCH (20:06)
[2024-02-01] MEDS: HYDROmorphone 2 MG/ML VIAL IVP PRN (20:06)
[2024-02-01] MEDS ORDERED: CYCLOBENZAPRINE HCL 10 MG TABLET (FLEXERIL) PO SCH (21:00)
[2024-02-01] MEDS ORDERED: MIRTAZAPINE 15 MG TABLET PO SCH (21:00)
[2024-02-02] VITALS: BP_SYST 112; PULSE 110; RESP 18; TEMP 97; O2SAT 95
[2024-02-02 08:00] VITALS: BP_SYST 137; PULSE 87; RESP 18; TEMP 97.9; O2SAT 99
[2024-02-02 08:46] LABS: BASOPHILS # (AUTO) 0.1 K/uL (0.0-0.2); BASOPHILS % (AUTO) 0.6 % (0.0-2.0); EOSINOPHILS % (AUTO) 0.4 % (0.0-4.0); LYMPHOCYTES # (AUTO) 2.3 K/uL (1.0-5.5); LYMPHOCYTES % (AUTO) 23.6 % (20.5-51.5); MEAN CORPUSCULAR HEMOGLOBIN 30 pg (27-31); MEAN CORPUSCULAR HGB CONC 32 % (32-36); MEAN CORPUSCULAR VOLUME 92 fL (79.0-98.0); MONOCYTES # (AUTO) 0.9 K/uL (0.0-1.0); MONOCYTES % (AUTO) 9.4 % (1.7-9.3); NEUTROPHILS # (AUTO) 6.3 K/uL (1.8-7.7); PLATELET COUNT (AUTO) 255 K/uL (130-430); WHITE BLOOD COUNT (AUTO) 9.6 K/uL (4.8-10.8)
[2024-02-02 09:05] LABS: CALCIUM 7.6 mg/dL (8.4-11.0); CREATININE 0.69 mg/dL (0.55-1.30); POTASSIUM 3.9 mmol/L (3.5-5.1)
[2024-02-02 09:12] LABS: HEMOGLOBIN 5.3 g/dL (12.0-16.0); RED BLOOD CELL COUNT(AUTO) 1.77 MIL/uL (4.2-6.2)
[2024-02-02 09:13] LABS: HEMATOCRIT 16.3 % (36-48)
[2024-02-02] MEDS: PREGABALIN 25 MG CAPSULE (LYRICA) PO SCH (09:13)
[2024-02-02] MEDS: ATORVASTATIN 20 MG TABLET PO SCH (09:14)
[2024-02-02] MEDS: LOSARTAN POTASSIUM 25 MG TABLET PO SCH (09:14)
[2024-02-02] MEDS ORDERED: HYDROmorphone 2 MG/ML VIAL IVP PRN (09:15)
[2024-02-02 09:36] LABS: INR 3.9 (0.8-1.2); PROTHROMBIN TIME 38.3 SECS (9.5-12.5)
[2024-02-02] MEDS ORDERED: MORPHINE 2 MG/ML INJ. SYRINGE IVP PRN (10:00)
[2024-02-02 12:21] VITALS: BP_SYST 108; PULSE 114; RESP 16; TEMP 97.7; O2SAT 94
[2024-02-02] MEDS: HYDROmorphone 2 MG/ML VIAL IVP PRN (12:35)
[2024-02-02 18:25] VITALS: BP_SYST 109; PULSE 107; RESP 18; TEMP 98; O2SAT 94
== END 2024-02-03 23:00 | disposition home or self-care (01) | DRG 241 ==
LOC: SED 01:01 → SMU 06:08 → UNDODISIN 02-02 23:00
PROVIDERS: ADMIT General Practice; ATTEND General Practice
PROC: 30233N1 Transfusion of Nonautologous Red Blood Cells into Peripheral Vein, Percutaneous Approach (ICD-10-PCS; principal; 2024-02-01)
DX: K25.4 Chronic or unspecified gastric ulcer with hemorrhage (principal); E87.0 Hyperosmolality and hypernatremia; I50.9 Heart failure, unspecified; I11.0 Hypertensive heart disease with heart failure; E11.9 Type 2 diabetes mellitus without complications; F32.A Depression, unspecified; E87.6 Hypokalemia; D72.829 Elevated white blood cell count, unspecified; D62 Acute posthemorrhagic anemia; G47.00 Insomnia, unspecified; N81.4 Uterovaginal prolapse, unspecified; T45.515A Adverse effect of anticoagulants, initial encounter; M54.89 Other dorsalgia; K29.70 Gastritis, unspecified, without bleeding; J44.9 Chronic obstructive pulmonary disease, unspecified; Z79.899 Other long term (current) drug therapy; Z79.01 Long term (current) use of anticoagulants
CPT/HCPCS: 36415; 71045; 80048; 80076; 80307; 81001; 81003; 83037; 83690; 83735; 83880; 84484; 85025; 85610; 85730; 86886; 86900; 86901; 86920; 93005; 94640; 99285; J1171; J2270; J2405; J2470; J7040; J7042; P9021; Q9967